=== PATIENT | male | born 1965 | race Two or more races ===

== ENCOUNTER 2019-07-14 09:50 | Emergency (ER) | payer MEDICAID, OTHER ==
[~2019-07-14] VITALS: Ht 167.6 cm; Wt 63.5 kg
[~2019-07-14 09:50] MED LIST: ATOR20TA; GLIP10TA9
[2019-07-14 09:59] VITALS: BP 142/81
== END 2019-07-14 12:30 | disposition home or self-care (01) ==
LOC: ER 09:50
DX: G51.0 Bell's palsy (principal); E11.9 Type 2 diabetes mellitus without complications; E78.5 Hyperlipidemia, unspecified
CPT/HCPCS: 70450